=== PATIENT | female | born 2000 | race Two or more races ===

== ENCOUNTER 2024-05-02 16:50 | Inpatient (IN) | payer MEDICAID ==
[~2024-05-02] VITALS: Ht 157.5 cm; Wt 61.2 kg
[2024-05-02] MEDS: LACT. RINGERS/OXYTOCIN 20UNITS 500 ML IV ONE ×2 (07:30→08:00)
[2024-05-02] MEDS ORDERED: LIDOCAINE 2%HCL (LOCAL ANESTH.) INJ 20ML MDV IJ PRN (17:45)
[2024-05-02 19:20] LABS: Basophils # (auto) 0 10 ^3/uL (0-0.2); Basophils % (auto) 0.2 % (0.0-2.0); Eosinophils # (auto) 0.2 10 ^3/uL (0-0.8); Hematocrit 35.9 % (36.0-46.0); Lymphocytes # (auto) 2.6 10 ^3/uL (0.4-5.4); Lymphocytes % (auto) 27.3 % (10.0-50.0); Mean Corpuscular Hemoglobin 28.3 pg (28.0-32.0); Mean Corpuscular Hgb Conc. 33.3 g/dL (32.0-36.0); Mean Corpuscular Volume 84.9 fL (80.0-100.0); Monocytes # (auto) 0.8 10 ^3/uL (0-1.3); Monocytes % (auto) 8.6 % (0.0-12.0); Neutrophils # (auto) 5.9 10 ^3/uL (1.6-8.6); Neutrophils % (auto) 61.9 % (37.0-80.0); Platelet Count (auto) 201 10^3/uL (140-450); Red Blood Cells 4.23 10^6/uL (4.0-5.20); Red Cell Distribution Width 14.1 % (11.8-14.3); White Blood Cell 9.5 10^3/uL (4.4-10.8)
[2024-05-02 19:37] LABS: INR 0.89 (0.9-1.15); Partial Thromboplastin Time 25.9 SEC (24.5-34.5); Prothrombin Time 9.5 sec (9.3-11.8)
[2024-05-02 19:38] LABS: Urine Bacteria FEW /hpf (None Seen); Urine Blood TRACE /uL (Negative); Urine Clarity Clear (Clear); Urine Color Light-Yellow (Yellow); Urine Protein, UAD Negative (Negative); Urine Specific Gravity 1.012 (1.001-1.035); Urine Squamous Epithelial Cell FEW /hpf (<5); Urine Urobilinogen Normal (Negative); Urine WBC 2 /hpf (0 - 5)
[2024-05-02 19:39] LABS: Alanine Aminotransferase 10 U/L (7-40); Anion Gap 9 (5-15); Aspartate Aminotransferase 20 U/L (13-40); BUN/Creatinine Ratio 15.6 (10.0-20.0); Calcium 9.5 mg/dL (8.7-10.4); Carbon Dioxide 21 mmol/L (20-31); Glucose 85 mg/dL (74-106); Potassium 3.9 mmol/L (3.5-5.1); Sodium 137 mmol/L (136-145)
[2024-05-02 19:40] LABS: Alkaline Phosphatase 150 U/L (46-116); Bilirubin, Total 0.3 mg/dL (0.2-1.0); Blood Urea Nitrogen 7 mg/dL (9-23); Chloride 107 mmol/L (98-107); Total Protein 6.8 g/dL (5.7-8.2)
[2024-05-02 19:47] LABS: Amphetamine Screen, Urine Neg (NEGATIVE); Barbiturate Scree,Urine Neg (NEGATIVE); Benzodiazephine Screen, Urine Neg (NEGATIVE); Cannabinoid Screen, Urine Neg (NEGATIVE); Cocaine Screen, Urine Neg (NEGATIVE); Opiate Scree,Urine Neg (NEGATIVE); Phencyclidine Screen, Urine Neg (NEGATIVE)
[2024-05-02] MEDS: miSOPROStol 50 MCG per PRE-CUT 1/2 TAB PO PRN (19:50)
--- NOTE | 2024-05-02 20:44 | DVHHP2 ---
OB CC & HPI Date Date of Admission: May 02, 2024 Patient Identification: : 1 Para: 0 EDC: May 22, 2024 EGA: 37.1 Chief Complaints: Reason for admission: rupture of membranes Indication for induction: other (PROM) History of Present Complaints 24yo IUP@37.1wks presents to triage complaining of PROM at 1400, clear fluid, denies UCs. Denies VB/HERNANDEZ/vision changes/RUQ pain. Endorses +FM. PNC: Pt originally received PNC with a [facility] provider, and transferred care to [facility] at 26 weeks, adequate visits, PNC complicated by mitral valve prolapse, pt reports seeing manager operations research on 04/24/24 and being cleared for delivery. 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 GTT wn l, dating based on 13wk sono per pt with [facility] provider. GBS negative. Past Medical History Cardiac: Other (mitral valve prolapse) Pulmonary: No pertinent Hx Central Nervous System: No pertinent Hx GI: No pertinent Hx Hemotology/Oncology: No pertinent Hx Hepatobiliary: No pertinent Hx Psychiatric: No pertinent Hx Musculoskeletal: No pertinent Hx Rheumotologic: No pertinent Hx Infectious Disease: No peritnent Hx ENT: No pertinent Hx Renal/: No pertinent Hx Endocrine: No pertinent Hx Dermatology: No pertinent Hx Past Surgical History: No pertinent Hx OB History OB History Care: Good Care Ultrasounds: Normal mid trimester US Obstetrical Complications: None Medical Complications: None Allergies: Coded Allergies: NO KNOWN ALLERGIES (Unverified , 05/02/24) Home Meds PNV Current Medications Current Medications Medications (Trade) Dose Ordered Sig/Jeramy Route PRN Reason Start Time Stop Time Status Last Admin Lactated Ringer's 1,000 ml @ 125 mls/hr Q8H IV 05/02/24 17:45 Witch Gwen (Tucks) 1 pad PRN PRN TOP PERINEAL AREA DISCOMFORT 05/02/24 17:45 Sodium Lauryl Sulfate (Phisoderm) 240 ml PRN PRN TOP PERINEAL AREA DISCOMFORT 05/02/24 17:45 Benzocaine (Dermoplast) 1 applic PRN PRN TOP PERINEAL AREA DISCOMFORT 05/02/24 17:45 Lidocaine HCl (Xylocaine) 20 ml ONCE PRN IJ PERINEAL AREA DISCOMFORT 05/02/24 17:45 Misoprostol (Cytotec) 50 mcg Q4HPRN PRN PO CERVICAL RIPENING 05/02/24 18:30 05/02/24 19:50 Cefazolin Sodium 50 ml @ 100 mls/hr Q8HR IV 05/02/24 21:00 UNV Family & Social History Family/Social History Past Family/Social History: Denies Blood Type: O+ Rubella: immune RPR/VDRL: Negative GBS Status: Negative HBsAG: Negative Review of Systems Constitutional: No symptom reported Ears, Nose, & Throat: No symptom reported Eyes: No symptom reported Pulmonary/Respiratory: No symptom reported Cardiovascular: No symptom reported Gastrointestinal: No symptom reported Genitourinary: No symptom reported Musculoskeletal: No symptom reported Skin: No symptom reported Psychiatric: No symptom reported Endocrine: No symptom reported Hemotologic/Lymphatic: No symptom reported OB Admission Exam Physical Exam Vitals: VSS, see chart EFW in office this week: 5lbs 11oz, vertex HEENT: TMs Normal, Fontanelles Normal, Nasal Mucosa Normal, Eyes non-injected, Oropharynx Normal, PERRLA, Moist Membranes, EOMI Heart: Rhythm Normal Lungs: Clear Abdomen: Gravid Extremities: Normal Reflexes: Normal Pelvic Exam: /-2, SVE by RN Membranes: Ruptured Amniotic Fluid: Clear Heart Rate: 140's Accelerations: Accelerations Present Decelerations: No Decelerations Radar Air Traffic Controller Variability: Average (6-25) Contractions on Admission: None OB Plan Plan Admitting Diagnosis: PROM Plan: Induction Induction Methd: Misoprostol protocol Other Plan: A: 24yo IUP@37.1wks Induction of Labor PROM, clear fluid Category I EFM GBS negative P: Admit to L&D Informed consent obtained Discussed risks, benefits, alternatives of IOL for PROM with pt. Pt consents to IOL with cytotec. Start IV Ancef per Dr Sutherland's order for PROM prophylactic, pt consents monitoring per order Routine labs ordered Pain mgmt PRN Frequent position changes in and out of bed encouraged Limit SVE unless necessary Intrauterine resuscitation PRN Anticipate ROBERT Bradley will consult with ROSALIA Bay STUDENTMDW May 02, 2024 20:44
[2024-05-02] MEDS: DERMOPLAST 60ML BOTTLE TOP PRN (20:53)
[2024-05-02] MEDS: WITCH HAZEL-GLYCERIN PAD TOP PRN (20:53)
[2024-05-02] MEDS: PHISODERM TOP SOLN 240ML BTL TOP PRN (20:53)
[2024-05-02] MEDS: ceFAZolin 1GM/50ML 50 ML IV SCH (20:54)
[2024-05-03] MEDS: LACTATED RINGER'S 1,000 ML IV SCH (01:25)
[2024-05-03] MEDS ORDERED: NALBUPHINE HCL 10 MG/1ml INJECTION IV PRN (01:30)
[2024-05-03] MEDS ORDERED: TERBUTALINE SULFATE 1 MG/ML 1ML VIAL SC PRN (02:15)
[2024-05-03] MEDS ORDERED: NALOXONE HCL 0.4 MG/ML VIAL IV ONE (02:15)
[2024-05-03] MEDS ORDERED: fentaNYL 400mCg/200ml W ROPIVA 200 ML EPI SCH (02:15)
[2024-05-03] MEDS ORDERED: ePHEDrine SULFATE 50 MG/ML AMP IV ONE (02:15)
[2024-05-03] MEDS: LACT. RINGERS/OXYTOCIN 20UNITS 1,000 ML IV SCH (04:33)
[2024-05-03] MEDS: ROPIVACAINE HCL 200 ML ONE (04:35)
[2024-05-03] MEDS: NALBUPHINE HCL 10 MG/1ml INJECTION ONE (05:03)
[2024-05-03] MEDS ORDERED: FAMOTIDINE (10MG/ML) 2ML VL IV ONE (05:30)
[2024-05-03] MEDS ORDERED: CALCIUM CARB 500 MG CHEW TAB PO PRN (05:30)
--- NOTE | 2024-05-03 05:53 | DVHPN2 ---
CNM Labor Progress Note Date and Time Seen Date Seen: May 02, 2024 Time Seen: 23:41 Subjective Patient reports: Feels worse Subjective Comment Pt wants SVE, IV pain medication, and then epidural. She is feeling a lot of UC pain. Objective Vital Signs VSS Monitoring Method Monitoring Method: External Heart Rate Heart Rate Baseline: 140 Heart Rate Variability: Moderate Presence of FHR Accelerations: Yes Presence of FHR Decelerations: No Are all 5 Components of the FH: Yes Contractions Contractions Frequency: Other (4 in 10 min) Duration of Contraction: 80 Contractions Intensity: Moderate Contractions Resting Tone: Relaxed Membranes Membranes: Ruptured Amniotic Fluid Color: Clear Vaginal Exam Vag Exam Deferred: No Vaginal Exam Dilation: 1 Vaginal Exam Effacement: 80 Vaginal Exam Station: -1 Vaginal Exam Presentation: VTX Vaginal Exam Show: None Medications Medications - Pitocin: No Medications - Pain Medications: PRN Medication - Epidural: No Medication - Other 1 dose of PO cytotec received Lab Results Lab Results Vital Signs Date Time Temp Pulse Resp B/P (MAP) Pulse Ox O2 Delivery O2 Flow Rate FiO2 05/03/24 05:58 100.6 05/03/24 05:03 81 16 111/69 Current Medications Medications (Trade) Dose Ordered Sig/Jeramy Start Time Stop Time Status Last Admin Dose Admin Lactated Ringer's 1,000 ml @ 125 mls/hr Q8H 05/02/24 17:45 05/03/24 09:10 DC 05/03/24 01:25 125 MLS/HR Kyra Hidalgo (Tucks) 1 pad PRN PRN 05/02/24 17:45 05/02/24 20:53 1 PAD Sodium Lauryl Sulfate (Phisoderm) 240 ml PRN PRN 05/02/24 17:45 05/02/24 20:53 240 ML Benzocaine (Dermoplast) 1 applic PRN PRN 05/02/24 17:45 05/02/24 20:53 1 APPLIC Lidocaine HCl (Xylocaine) 20 ml ONCE PRN 05/02/24 17:45 05/03/24 09:10 DC Oxytocin 500 ml @ 999 mls/hr Q31M ONCE 05/02/24 17:45 05/02/24 18:15 DC Oxytocin 500 ml @ 125 mls/hr Q4H ONCE 05/02/24 18:15 05/02/24 22:14 DC Misoprostol (Cytotec) 50 mcg Q4HPRN PRN 05/02/24 18:30 05/03/24 09:10 DC 05/02/24 19:50 50 MCG Cefazolin Sodium 50 ml @ 100 mls/hr Q8HR 05/02/24 21:00 05/03/24 09:10 DC 05/03/24 05:00 100 MLS/HR Nalbuphine HCl (Nubain) 10 mg Q4HP PRN 05/03/24 01:30 05/03/24 09:10 DC Oxytocin 1,000 ml @ 6 ml/hr Q24H 05/03/24 02:15 05/03/24 04:33 6 ML/HR Terbutaline Sulfate (Brethine Inj) 0.25 mg ONCE PRN 05/03/24 02:15 05/03/24 09:10 DC Naloxone HCl (Narcan) 0.2 mg PRN ONCE 05/03/24 02:15 05/03/24 02:20 DC Ephedrine Sulfate (ePHEDrine SULFATE) 10 mg PRN ONCE 05/03/24 02:15 05/03/24 02:20 DC Lidocaine HCl (Xylocaine-Pf 2% Injection) 10 ml ONCE ONCE 05/03/24 02:15 05/03/24 02:20 DC Fentanyl/ Ropivacaine 200 ml @ 0 mls/hr UD 05/03/24 02:15 05/03/24 05:28 DC Famotidine (Pepcid Injection) 20 mg ONCE ONCE 05/03/24 05:30 05/03/24 05:33 DC Calcium Carbonate (Tums) 500 mg QIDPRN PRN 05/03/24 05:30 05/03/24 09:10 DC Ondansetron HCl (Zofran) 4 mg Q4HPRN PRN 05/03/24 05:30 05/03/24 08:39 4 MG Acetaminophen (Tylenol Tablet) 1,000 mg Q4HP PRN 05/03/24 06:00 05/03/24 09:10 DC Ampicillin Sodium 2 gm/Sodium Chloride 100 ml @ 100 mls/hr Q6HR 05/03/24 06:00 05/05/24 05:59 05/03/24 06:59 100 MLS/HR Gentamicin Sulfate 0 ml @ 0 mls/hr PER PHARMACY 05/03/24 06:00 05/05/24 05:59 Gentamicin Sulfate 300 mg/ Sodium Chloride 107.5 ml @ 107.5 mls/ hr ONCE ONCE 05/03/24 06:30 05/03/24 07:29 DC 05/03/24 09:22 107.5 MLS/HR Ibuprofen (Motrin Tablet) 600 mg Q6HP PRN 05/03/24 09:15 Docusate Sodium (Colace Capsule) 200 mg HS 05/03/24 22:00 Laboratory Tests Test 05/02/24 18:24 05/02/24 16:50 Range/Units White Blood Count 9.5 4.4-10.8 10^3/uL Red Blood Count 4.23 4.0-5.20 10^6/uL Hemoglobin 12.0 L 12.2-16.2 g/dL Hematocrit 35.9 L 36.0-46.0 % Mean Corpuscular Volume 84.9 80.0-100.0 fL Mean Corpuscular Hemoglobin 28.3 28.0-32.0 pg Mean Corpuscular Hemoglobin Concent 33.3 32.0-36.0 g/dL Red Cell Distribution Width 14.1 11.8-14.3 % Platelet Count 201 140-450 10^3/uL Mean Platelet Volume 10.0 6.9-10.8 fL Neutrophils (%) (Auto) 61.9 37.0-80.0 % Lymphocytes (%) (Auto) 27.3 10.0-50.0 % Monocytes (%) (Auto) 8.6 0.0-12.0 % Eosinophils (%) (Auto) 2.0 0.0-7.0 % Basophils (%) (Auto) 0.2 0.0-2.0 % Neutrophils # (Auto) 5.9 1.6-8.6 10 ^3/uL Lymphocytes # (Auto) 2.6 0.4-5.4 10 ^3/uL Monocytes # (Auto) 0.8 0-1.3 10 ^3/uL Eosinophils # (Auto) 0.2 0-0.8 10 ^3/uL Basophils # (Auto) 0 0-0.2 10 ^3/uL Nucleated Red Blood Cells 0.0 % Prothrombin Time 9.5 9.3-11.8 sec Prothrombin Time INR 0.89 L 0.9-1.15 Activated Partial Thromboplast Time 25.9 24.5-34.5 SEC Sodium Level 137 136-145 mmol/L Potassium Level 3.9 3.5-5.1 mmol/L Chloride Level 107 98-107 mmol/L Carbon Dioxide Level 21 20-31 mmol/L Anion Gap 9 5-15 Blood Urea Nitrogen 7 L 9-23 mg/dL Creatinine 0.45 L 0.550-1.02 mg/dL Glomerular Filtration Rate Calc 138 >90 mL/min BUN/Creatinine Ratio 15.6 10.0-20.0 Serum Glucose 85 74-106 mg/dL Calcium Level 9.5 8.7-10.4 mg/dL Total Bilirubin 0.3 0.2-1.0 mg/dL Aspartate Amino Transferase (AST) 20 13-40 U/L Alanine Aminotransferase (ALT) 10 7-40 U/L Alkaline Phosphatase 150 H 46-116 U/L Total Protein 6.8 5.7-8.2 g/dL Albumin 4.0 3.2-4.8 g/dL Rapid Plasma Reagin Pending Treponema pallidum Ab (TP-PA) Pending Hepatitis C Antibody Negative Negative Urine Color Light-yellow Yellow Urine Clarity Clear Clear Urine pH 7.0 5.0-9.0 Urine Specific [place] 1.012 1.001-1.035 Urine Protein Negative Negative Urine Ketones Negative Negative Urine Blood Trace H Negative /uL Urine Nitrite Negative Negative Urine Bilirubin Negative Negative Urine Urobilinogen Normal Negative mg/dL Urine Leukocyte Esterase Negative Negative /uL Urine RBC 1 0 - 4 /hpf Urine WBC 2 0 - 5 /hpf Urine Squamous Epithelial Cells Few <5 /hpf Urine Bacteria Few H None Seen /hpf Urine Glucose Normal Normal mg/dL Urine Opiates Screen Neg NEGATIVE Urine Fentanyl Screen Neg NEGATIVE Urine Barbiturates Screen Neg NEGATIVE Urine Phencyclidine Screen Neg NEGATIVE Urine Amphetamines Screen Neg NEGATIVE Urine Benzodiazepines Screen Neg NEGATIVE Urine Cocaine Screen Neg NEGATIVE Urine Cannabinoids Screen Neg NEGATIVE Assessment Assessment 24yo IUP@37.1wks Induction of Labor PROM, clear fluid Category I EFM GBS negative Plan Plan RN to give IV pain med and prepare fo epidural placement Start IV pitocin titration per policy Continue IV Ancef per Dr Sutherland's order for PROM prophylactic. monitoring per order Frequent position changes in and out of bed encouraged Limit SVE unless necessary Intrauterine resuscitation PRN Anticipate ROBERT Cade will consult with Dr. Sutherland PRN Plan discussed with: Patient, Spouse ARMIDA CADE CNM May 03, 2024 05:53
[2024-05-03] MEDS: ACETAMINOPHEN 500 MG TAB or CAP PO ONE (05:58)
[2024-05-03] MEDS ORDERED: ACETAMINOPHEN 325 MG TAB PO PRN (06:00)
[2024-05-03] MEDS ORDERED: GENTAMICIN PER PHARMACY 0 ML IV SCH (06:00)
--- NOTE | 2024-05-03 06:54 | DVHPN2 ---
Chief Complaints Patient reports: No new complaints Nursing reports: No new complaints Objective Vitals Vital Signs Date Time Temp Pulse Resp B/P (MAP) Pulse Ox O2 Delivery O2 Flow Rate FiO2 05/03/24 05:58 100.6 05/03/24 05:03 81 16 111/69 Medications Current Medications Medications (Trade) Dose Ordered Sig/Jeramy Route PRN Reason Start Time Stop Time Status Last Admin Acetaminophen (Tylenol Tablet) 1,000 mg Q4HP PRN PO PAIN SCALE 1-3 OR TEMP>100.4 05/03/24 06:00 Ampicillin Sodium 2 gm/Sodium Chloride 100 ml @ 100 mls/hr Q6HR IV 05/03/24 06:00 05/05/24 05:59 Benzocaine (Dermoplast) 1 applic PRN PRN TOP PERINEAL AREA DISCOMFORT 05/02/24 17:45 05/02/24 20:53 Calcium Carbonate (Tums) 500 mg QIDPRN PRN PO FOR STOMACH DISTRESS 05/03/24 05:30 Cefazolin Sodium 50 ml @ 100 mls/hr Q8HR IV 05/02/24 21:00 05/03/24 05:00 Gentamicin Sulfate 0 ml @ 0 mls/hr PER PHARMACY IV 05/03/24 06:00 05/05/24 05:59 UNV Lactated Ringer's 1,000 ml @ 125 mls/hr Q8H IV 05/02/24 17:45 05/03/24 01:25 Lidocaine HCl (Xylocaine) 20 ml ONCE PRN IJ PERINEAL AREA DISCOMFORT 05/02/24 17:45 Misoprostol (Cytotec) 50 mcg Q4HPRN PRN PO CERVICAL RIPENING 05/02/24 18:30 05/02/24 19:50 Nalbuphine HCl (Nubain) 10 mg Q4HP PRN IV MODERATE PAIN (4-6 PAIN SCALE) 05/03/24 01:30 Ondansetron HCl (Zofran) 4 mg Q4HPRN PRN IV NAUSEA / VOMITING 05/03/24 05:30 Oxytocin 1,000 ml @ 6 ml/hr Q24H IV 05/03/24 02:15 05/03/24 04:33 Sodium Lauryl Sulfate (Phisoderm) 240 ml PRN PRN TOP PERINEAL AREA DISCOMFORT 05/02/24 17:45 05/02/24 20:53 Terbutaline Sulfate (Brethine Inj) 0.25 mg ONCE PRN SC Uterine tachysystole 05/03/24 02:15 Kyra Hidalgo (Angelica) 1 pad PRN PRN TOP PERINEAL AREA DISCOMFORT 05/02/24 17:45 05/02/24 20:53 Others VE-LAST CHECK 1CM/80/-1 Studies Laboratory Tests 05/02/24 18:24 Test 05/02/24 18:24 Range/Units Serum Glucose 85 74-106 mg/dL Ass/Plan Assessment LABOR W/SROM Plan CONT WITH MAXIM FRAUSTO DO May 03, 2024 06:54
[2024-05-03] MEDS: AMPICILLIN SOD 2GM INJ 2 GM in SODIUM CHL 0.9% 100 ML IV SCH (06:59)
[2024-05-03] MEDS: LIDOCAINE HCL 2 %PF INJ 10ML AMP IJ ONE (08:00)
[2024-05-03] MEDS: ONDANSETRON HCL 4 MG/2 ML VIAL IV PRN (08:39)
[2024-05-03] MEDS: GENTAMICIN SULFATE IV ONE (09:22)
[2024-05-03] MEDS: SODIUM CHL 0.9% IV ONE (09:22)
[2024-05-03 11:00] VITALS: BP 116/62; PULSE 80; RESP 16; TEMP 98.9; O2SAT 98
[2024-05-03] MEDS ORDERED: PREN-96 PO (11:59)
[2024-05-03] MEDS ORDERED: IBU600T PO (11:59)
[2024-05-03] MEDS ORDERED: DOCU-94 PO (11:59)
[2024-05-03] MEDS: IBUPROFEN 600 MG TAB PO PRN (13:39)
[2024-05-03 15:00] VITALS: BP 118/60; PULSE 72; RESP 16; TEMP 99; O2SAT 99
[2024-05-03 19:00] VITALS: BP 103/57; PULSE 85; RESP 16; TEMP 98; O2SAT 97
[2024-05-03] MEDS: DOCUSATE SOD 100 MG CAP PO SCH (21:59)
[2024-05-03] MEDS: GENTAMICIN SULFATE 300 MG in D5W 5% 100 ML IV ONE (22:11)
[2024-05-03 23:00] VITALS: BP 105/53; PULSE 74; RESP 16; TEMP 98.2; O2SAT 97
--- NOTE | 2024-05-03 23:18 | LDN2 ---
Labor and Delivery Note Date 05/03/24 Age 24 1 Para 1 EDC 2-4 EGA 37WKS Diagnosis SROM Vaginal Delivery: VTX Vacuum Assisted: No Placenta: Spontaneous Sex: Male Weight 5-12 Apgars 8-9 Amniotic Fluid: Clear Anesthesia EPIDURAL Episiotomy: No Extension: Yes (MIDLINE 2ND DGE PERINEAL LAC) Repaired with 2-0 CHROMIC EBL 300ML Labs Blood Bank 05/02/24 18:24: Blood Type O POSITIVE Complications NONE Conditions STABLE Comments/Significant Med Roney SPEC EXAM NO CXAL LAC MAXIM MULLIGAN DO May 03, 2024 23:18
[2024-05-04 03:00] VITALS: BP 100/59; PULSE 69; RESP 16; TEMP 97.8; O2SAT 97
[2024-05-04 07:06] LABS: RPR Non Reactive (Non Reactive)
[2024-05-04 07:16] VITALS: BP 99/52; PULSE 64; RESP 18; TEMP 98.6; O2SAT 97
--- NOTE | 2024-05-04 07:35 | DVHPN2 ---
Chief Complaints Patient reports: No new complaints, Feels worse Nursing reports: No new complaints Objective Vitals Vital Signs Date Time Temp Pulse Resp B/P (MAP) Pulse Ox O2 Delivery O2 Flow Rate FiO2 05/04/24 07:16 98.6 64 18 99/52 (68) 97 98.6 Medications Current Medications Medications (Trade) Dose Ordered Sig/Jeramy Route PRN Reason Start Time Stop Time Status Last Admin Docusate Sodium (Colace Capsule) 200 mg HS PO 05/03/24 22:00 05/03/24 21:59 Ibuprofen (Motrin Tablet) 600 mg Q6HP PRN PO MODERATE PAIN (4-6 PAIN SCALE) 05/03/24 09:15 05/04/24 05:26 General: Normal Lungs: Normal Cardiovascular: Normal Abdominal: Soft Extremities: Normal Studies Laboratory Tests 05/02/24 18:24 Test 05/02/24 18:24 Range/Units Serum Glucose 85 74-106 mg/dL Ass/Plan Assessment s/p Plan dc home fu 2wks MAXIM MULLIGAN DO May 04, 2024 07:35
--- NOTE | 2024-05-04 07:36 | DVHDS2 ---
Obstetrics Discharge Summary Obstetrics Discharge Summary Date of Admission: May 02, 2024 Date of Discharge: May 04, 2024 Reason For Admission: Onset of Labor Procedures: NST Intrapartum Procedures: Spontaneous vaginal deliv Procedures: None Operative Complicat: Laceration (Perineal) Discharge Diagnosis: Term -Delivered, Delivery Discharge Information: Activity (Other), Diet (Routine), Medications (Name:), Instructions (Routine), Discharge to (Home), Discarge date (-) MAXIM MULLIGAN DO May 04, 2024 07:36
[2024-05-07 12:06] LABS: Treponema Pallidum Ab LC Non Reactive (Non Reactive)
== END 2024-05-04 12:30 | disposition home or self-care (01) | DRG 560 ==
LOC: UNDOADMOB 16:50 → LDRP 16:50 → OBSVTOIN 17:30 → INTOOBSV 17:30
PROVIDERS: ADMIT Obstetrics & Gynecology; ATTEND Obstetrics & Gynecology
PROC: 10E0XZZ Delivery of Products of Conception, External Approach (ICD-10-PCS; principal; 2024-05-03)
PROC: 0KQM0ZZ Repair Perineum Muscle, Open Approach (ICD-10-PCS; 2024-05-03)
PROC: 3E0R3BZ Introduction of Anesthetic Agent into Spinal Canal, Percutaneous Approach (ICD-10-PCS; 2024-05-03)
PROC: 00HU33Z Insertion of Infusion Device into Spinal Canal, Percutaneous Approach (ICD-10-PCS; 2024-05-03)
DX: O42.92 Full-term premature rupture of membranes, unspecified as to length of time between rupture and onset of labor (principal); Z37.0 Single live birth; I34.1 Nonrheumatic mitral (valve) prolapse; Z3A.37 37 weeks gestation of pregnancy; O70.1 Second degree perineal laceration during delivery
CPT/HCPCS: 36415; 59409; 62282; 80053; 80170; 80307; 81001; 81002; 85025; 85610; 85730; 86592; 86780; 86803; 86850; 86900; 86901; 94760; 96360; 96361; 96365; 96366; 96374; G0378; J1580; J2405; J2590; J7060